=== PATIENT | male | born 1960 | race Caucasian/White ===

== ENCOUNTER 2025-07-31 10:41 | Day surgery (SDC) | payer OTHER, SELFPAY ==
[2025-07-31 11:03] VITALS: BP 132/88; PULSE 92; RESP 14; TEMP 36.6; O2SAT 97
--- NOTE | 2025-07-31 11:10 | W.ANESPRE ---
General Info Date of Service Date Performed: 07/31/25 Height: 5 ft 7 in Weight: 89.9 kg Body Mass Index (BMI): 31.0 Surgical Procedure: Operation Date: 07/31/25 12:50 Proposed Procedure Side Surgeon p Colonoscopy/Gastroscopy Janice Gilman MD Meds Allergies and Home Medications Allergies Allergy/AdvReac Type Severity Reaction Status Date / Time No Known Allergies Allergy Verified 07/31/25 10:57 Home Medication ?Medication ?Instructions ?Recorded amlodipine 5 mg tablet 5 mg PO DAILY 07/16/25 atorvastatin 40 mg tablet (Lipitor) 40 mg PO DAILY 07/16/25 fenofibrate nanocrystallized 48 mg 48 mg PO DAILY 07/16/25 tablet losartan 25 mg tablet 25 mg PO DAILY 07/16/25 bisacodyl 5 mg tablet,delayed 5 mg PO ONCE #4 tabs 07/28/25 release (Dulcolax (bisacodyl)) peg 3350-electrolytes 236 240 ml PO Q10M #4,000 mL 07/28/25 gram-22.74 gram-6.74 gram-5.86 gram solution (Golytely) Current Visit Medications: Current Medications Generic Name Dose Route Start Last Admin Trade Name Freq PRN Reason Stop Dose Admin Ringer's Solution 1,000 mls @ 80 mls/hr 07/31/25 06:00 IV 07/31/25 23:59 INFUSION GRACIE IV Miscellaneous Supplies 1 each 07/31/25 06:00 Iv Access IV 07/31/25 23:59 DIRECTED GRACIE Sodium Biphosphate/Sodium Phosphate 133 - 266 ml 07/31/25 06:00 Na Phosphate Enema-Adult 133 Ml Btl W[place] 07/31/25 23:59 PRN PRN Sodium Chloride 0 ml 07/31/25 06:00 Normal Saline Flush 10 Ml Syr IV 07/31/25 23:59 PRN PRN Sodium Chloride 0 ml 07/31/25 06:00 Normal Saline 10 Ml Vial IJ 07/31/25 23:59 DIRECTED PRN Sterile Water 0 ml 07/31/25 06:00 Water,Injection,Sterile 10 Ml Vial IJ 07/31/25 23:59 DIRECTED PRN PFSH Active Problems Active Problems: Problem Status Onset Code Dysphagia Acute R13.10 GERD (gastroesophageal reflux disease) Chronic K21.9 Medical History Medical History Status post nephrectomy - incidental finding left kidney on 01/2023 imaging. clear cell carcinoma. s/p resect 08/28 was following with [facility] urology Dr. Ortiz [facility] q6mo Hyperlipidemia Gout Essential hypertension Surgical History Surgical History S/P appendectomy (~2005) Tobacco Smoking/Tobacco Use Status: Former Tobacco Use Passive smoking exposure: No Alcohol Alcohol Intake: current Alcohol intake frequency: a few times a week Alcohol type: hard liquor Substance Use Substance use: Never Substance use type: does not use Vital Signs and Lab Results Vital Signs Most Recent Vital Signs in EMR: Most Recent Vital Signs Temp Pulse Resp BP Pulse Ox 36.6 C 92 H 14 132/88 97 07/31/25 11:03 07/31/25 11:03 07/31/25 11:03 07/31/25 11:03 07/31/25 11:03 Anesthesia Assessment and Plan Anesthesia History Personal History: No History of Anesthesia Complications Family History: No Family History of Anesthesia Complications Exercise Tolerance Exercise Tolerance: Metabolic Equivalents>4 Pertinent Negatives Pertinent Negatives: No Symptoms of GERD Cardiac & Pulmonary Exam Cardiac Exam: Normal S1/S2 Heart Sounds Pulmonary Exam: Clear Bilateral Breath Sounds Implantable Cardiac Device Does patient have a Pacemaker or an ICD?: No Airway Exam Known Difficult Airway: No Mallampati Class: 1 Mouth Opening: Normal (> 3cm) Thyromental Distance: Greater than 3 cm Neck Range of Motion: Full ROM Neck Circumference: Normal Teeth Condition: Normal Dentition ASA Classification ASA Score: ASA 2 Emergency Case?: No NPO Status NPO Status: NPO Clears >2 hours, Solids >8 hours Anesthesia Plan Resuscitation Status: Full Code Anesthesia Technique: General Anesthesia Airway Planned: Natural Airway Monitors Used: Standard Monitors
[2025-07-31 11:12] VITALS: BMI 31.0
[2025-07-31] MEDS: Lactated Ringers 1,000 ML 80 ML IV (11:25)
--- NOTE | 2025-07-31 11:39 | W.PM.DSUDISC ---
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 Needs repeat EGD in 3 months to reassess after treatment with PPI. Colonoscopy with one polyp that could not be removed due to the angle. Biopsy performed, recommend repeat colonoscopy for removal of the rest in 3 months. Repeat attempts are often successful. Home Meds and New Rx's Prescriptions: New pantoprazole 40 mg tablet,delayed release (DR/EC) 40 mg PO DAILY Qty: 90 3RF Continued atorvastatin [Lipitor] 40 mg tablet 40 mg PO DAILY amlodipine 5 mg tablet 5 mg PO DAILY losartan 25 mg tablet 25 mg PO DAILY fenofibrate nanocrystallized 48 mg tablet 48 mg PO DAILY Discontinued peg 3350-electrolytes [Golytely] 236-22.74-6.74 -5.86 gram recon soln 240 ml PO Q10M Qty: 4000 0RF Rx Instructions: until fecal effluent is clear bisacodyl [Dulcolax (bisacodyl)] 5 mg tablet,delayed release (DR/EC) 5 mg PO ONCE Qty: 4 0RF Rx Instructions: Take per colonoscopy instructions provided by ordering providers office Discharge Instructions Additional Instructions: Your egd showed severe esophagitis with ulcer and stricture. This means the esophagus is narrow and inflamed and even has an ulcer on it from how irritated it has gotten from acid reflux. You reflux from your hiatal hernia that was seen today. The esophagus was too inflamed and irritated to be able to safely dilate or stretch today. Because of the ulceration I also was not able to get a thorough exam of it to check it for signs of skilled nursing damage. We need to repeat this EGD procedure after a period of medication treatment of your reflux. The medication will calm it down enough for me to be able to stretch it if needed, and to be able to examine it better for problems. You will need to stay on an acid serjio [facility] HOME to prevent complications like this, and prevent worsening of these problems. The new medication I prescribed you is your new best friend. Take it every day faithfully. Come see me in office in 2-4 weeks to review your scopes, all biopsies that I took today from stomach and esophagus and colon, and to ensure this problem with swallowing is getting better. Avoid lumps of meat and bread (avoid sandwiches). Eat ground meats with sauce and other easy to swallow foods. As your swallowing improves on the medication you can start to eat regular again. Colonoscopy showed one polyp. It was large. I was not able to remove all of it today, we will need to remove the rest of whats left of it on another visit. We will repeat the colonoscopy at the time of your next upper scope when we recheck the esophagus. We will discuss timing of this at the office appointment. Call my office and make a follow up appointment for 2 weeks from now please. It important that you follow up with me about these things. I can help keep your esophagus safe. Stand Alone Forms: Anesthesia Discharge Inst., DSU Post EGD Instructions, Colonoscopy Post Instructions, Re Newman (DSU) Activity:: Activity as Tolerated Diet:: Ground meats, sauces on food to moisten. Drink well with meals. Discharge Orders Discharge Orders: Discharge Order (Routine); Ordered 07/31/25 Ordered By: Janice Gilman DS: Diagnosis Discharge Diagnosis (1) Screening for colorectal cancer: Status: Acute (2) Dysphagia: Status: Acute (3) GERD (gastroesophageal reflux disease): Status: Chronic (4) Hiatal hernia with GERD and esophagitis: Status: Acute (5) Ulcerative esophagitis: Status: Acute (6) Esophageal stricture: Status: Acute (7) Polyp of ascending colon: Status: Acute
--- NOTE | 2025-07-31 12:11 | W.PM.ENDDOP ---
Date of service: 07/31/25 Time of Service: 12:12 Endoscopy Report DATE OF PROCEDURE: 07/31/25 PRE-OP DIAGNOSIS: Dysphagia, GERD, odynophagia POST-OP DIAGNOSIS: same PROCEDURE: EGD with biopsy SURGEON: Janice Gilman ANESTHESIA TYPE: General:No Airway ESTIMATED BLOOD LOSS: 2 PATHOLOGY: other (1. antrum biopsy) COMPLICATIONS: None DISPOSITION: same day PROCEDURE DESCRIPTION: Lubricated endoscope was passed through a bite block into the second portion of the duodenum. The endoscope was withdrawn and the duodenum stomach and esophageal mucosa examined. The duodenum appears moderate to severely inflamed in the bulb. There is no ulceration or erosion. The antrum appears mild to moderately inflamed. The fundus appears normal. The cardia appears normal. There is moderate sized hiatal hernia noted upon retroflexion. GE junction is present at 36cm from the incisors. There is acute and chronic inflammation with ulceration. No varices or candidiasis. Remainder of the esophagus appears normal Cold forceps biopsies obtained from the duodenum, antrum and the distal esophagus for microscopic evaluation for sprue, enteropathy, H. pylori, Barretts esophagitis. Dilation of esophagus was not performed due to severity of inflammation and ulceration. The upper digestive system was desufflated and the endoscope withdrawn. No complications. Assessment and plan: Mild to moderate duodenitis and gastritis. hiatal hernia with severe esophagitis, narrowing and ulceration. Start pantoprazole 40mg daily. Monitor for bleeding with meals. Dilation of esophagus was not performed due to severity of inflammation and ulceration. Recommend a second look at the esophagus after the inflammation has been reduced and treated, need to rule out barretts metaplasia or dysplastic change. Too much acute inflammation today for complete exam. Office follow up in 2-4 weeks.
--- NOTE | 2025-07-31 12:16 | BOWEL_PTH ---
PATIENT: Marvin Blanton LOC: [facility] U#:[id number] AGE/SX: 65/M ROOM: RE07/31/[address]: Janice Gilman MD : 1960 BED: DIS: 07/31/2025 SPEC #: [id number] RECD: 07/31/25 16:47 STATUS: FRANCA RE #: [id number] WILLA: 07/31/25 12:[address]: Janice Gilman DEPT: Surgical Specimen RECD BY: Sarai Cedeño Tissues: 1 - BIOPSY BOWEL 2 - STOMACH BIOPSY 3 - ESOPHAGUS BIOPSY 4 - BIOPSY BOWEL Procedures: GROSS AND MICRO LEVEL 4 Comments: [id number]
[2025-07-31 12:54] VITALS: BP 100/74; PULSE 85; RESP 15; TEMP 36.4; O2SAT 94
--- NOTE | 2025-07-31 12:59 | W.ANESPOSTOP ---
Postoperative Evaluation Date, Time and Location Date Performed: 07/31/25 Time Performed: 12:54 Patient Location: Day Surgery Unit Vital Signs Most Recent Imported Vital Signs: Most Recent Vital Signs Temp Pulse Resp BP Pulse Ox 36.4 C L 85 15 100/74 94 07/31/25 12:54 07/31/25 12:54 07/31/25 12:54 07/31/25 12:54 07/31/25 12:54 Pain Score Most Recent Pain Score: Most Recent Pain Score Pain Level 3 07/31/25 11:03 Assessment Mental Status: Awake (Alert & Oriented to Patient Baseline) Airway and Respiratory Function: Patent airway with normal (patient baseline) respiratory exam Cardiovascular Function: Hemodynamically Stable Hydration Status: Adequately Hydrated Nausea & Vomiting: No Nausea or Vomiting Pain: Pain is tolerable per patient Peripheral Nerve Block: Patient did not receive a nerve block
--- NOTE | 2025-07-31 13:01 | W.COLOREPORT ---
Date of service: 07/31/25 Time of Service: 13:01 Colonoscopy Report Date of procedure: 07/31/25 Pre-op diagnosis general: Screening for colorectal cancer Post-op diagnosis procedure note: same Procedure: Colonoscopy Surgeon: Janice Gilman Anesthesia Type: General:No Airway Estimated blood loss (mL): 0 Pathology: other (asc col polyp biopsy) Complications: None Indications: screening for colorectal cancer Prep: Miralax/Dulcolax (excellent) Procedure Description: Informed consent was obtained and the patient was taken to the procedure area. The patient was placed in left lateral decubitus position on the procedure table. Timeout was performed. Anesthesia was induced. A lubricated colonoscope was inserted through the anus and passed to the cecum. The cecum was identified by the ileocecal valve and the appendiceal orifice. The scope was then slowly withdrawn and the colonic and rectal mucosa examined. TI intubated and examined. It appears normal. Ascending colon with 10mm by 6mm sessile polyp. Hot snare attempted with only portion of polyp able to be reached due to the angle of the scope. Suction trap used to retrieve the biopsy. No diverticulosis was seen. The scope was retroflexed in the anorectal junction examined. Uncomplicated internal hemorrhoids present. Assessment and plan: Ascending colon polyp One large polyp of asc colon seen and biopsied today. Unable to remove in its entirety due to angle of the scope. Repeat scope is usually successful when difficulty is relatd to scope angulation, so I plan to return on another date to remove the rest of the polyp. Will review path in office. Time repeat colonoscopy with repeat EGD.
[2025-07-31 13:14] VITALS: BP 126/79; PULSE 65; RESP 16; TEMP 36.2; O2SAT 99
== END 2025-07-31 13:40 | disposition home or self-care (01) ==
LOC: SUR 10:42
PROVIDERS: PCP Nurse Practitioner; Visit Provider Surgery
PROC: (CPT 45385; principal; 2025-07-31 12:45)
DX: Z12.11 Encounter for screening for malignant neoplasm of colon (principal); R13.10 Dysphagia, unspecified; K44.9 Diaphragmatic hernia without obstruction or gangrene; K22.10 Ulcer of esophagus without bleeding; K22.2 Esophageal obstruction; K63.5 Polyp of colon
CPT/HCPCS: 45385; 43239; 88305; J2003; J2704

== ENCOUNTER 2025-10-23 07:59 | Day surgery (SDC) | payer OTHER, SELFPAY ==
[2025-10-23 06:25] VITALS: BP 141/78; PULSE 71; RESP 14; TEMP 36.2; O2SAT 99
[2025-10-23] MEDS: Lactated Ringers 1,000 ML 80 ML IV ×2 (06:49→08:29)
--- NOTE | 2025-10-23 07:51 | ANES.PREOP_ITS ---
General Info Date of Service Date Performed: 10/23/25 Height: 5 ft 7 in Weight: 95.708 kg Body Mass Index (BMI): 33.0 Surgical Procedure: Operation Date: 10/23/25 07:35 Proposed Procedure Side Surgeon p Colonoscopy/Gastroscopy Janice Gilman MD Meds Allergies and Home Medications Allergies Allergy/AdvReac Type Severity Reaction Status Date / Time No Known Allergies Allergy Verified 10/23/25 07:52 Home Medication ?Medication ?Instructions ?Recorded amlodipine 5 mg tablet 5 mg PO DAILY 07/16/25 atorvastatin 40 mg tablet (Lipitor) 40 mg PO DAILY 08/30 fenofibrate nanocrystallized 48 mg 48 mg PO DAILY 07/07 tablet losartan 25 mg tablet 25 mg PO DAILY 07/16/25 pantoprazole 40 mg tablet,delayed 40 mg PO DAILY #90 t abs 07/31/25 release bisacodyl 5 mg tablet,delayed 5 mg PO ONCE colonscopy bowel prep 09/03/25 release (Dulcolax (bisacodyl)) #4 tabs polyethylene glycol 3350 17 238 g PO ONCE colonoscopy prep 09/03/25 gram/dose oral powder #238 grams Current Visit Medications: Current Medications Generic Name Dose Route Start Last Admin Trade Name Freq PRN Reason Stop Dose Admin Ringer's Solution 1,000 mls @ 80 mls/hr 10/23/25 06:00 IV 10/23/25 23:59 INFUSION GRACIE Sodium Biphosphate/Sodium Phosphate 133 ml 10/23/25 06:00 Na Phosphate Enema-Adult 133 Ml Btl PA 10/23/25 23:59 DIRECTED PRN Sodium Chloride 0 ml 10/23/25 06:00 Normal Saline Flush 10 Ml Syr IV 10/23/25 23:59 PRN PRN Sodium Chloride 0 ml 10/23/25 06:00 Normal Saline 10 Ml Vial IJ 10/23/25 23:59 DIRECTED PRN Sterile Water 0 ml 10/23/25 06:00 Water,Injection,Sterile 10 Ml Vial IJ 10/23/25 23:59 DIRECTED PRN PFSH Active Problems Active Problems: Problem Status Onset Code Adenoma of ascending colon Acute D12.2 Esophageal stricture Acute K22.2 Ulcerative esophagitis Acute K22.10 Hiatal hernia with GERD and esophagitis Acute K44.9, K21.00 Screening for colorectal cancer Acute Z12.11, Z12.12 Dysphagia Acute R13.10 GERD (gastroesophageal reflux disease) Chronic K21.9 Medical History Medical History Status post nephrectomy - incidental finding left kidney on 01/2023 imaging. clear cell carcinoma. s/p resect 08/28 was following with [facility] urology Dr. Ortiz [facility] q6mo Hyperlipidemia Gout Essential hypertension Surgical History Surgical History History of esophagogastroduodenoscopy (~07/31/25) biopsy History of colonoscopy (~07/31/25) S/P appendectomy (~2005) Tobacco Smoking/Tobacco Use Status: Former Tobacco Use Passive smoking exposure: No Alcohol Alcohol Intake: current Alcohol intake frequency: a few times a week Alcohol type: hard liquor Substance Use Substance use: Never Substance use type: does not use Anesthesia Assessment and Plan Anesthesia History Personal History: No History of Anesthesia Complications Family History: No Family History of Anesthesia Complications Exercise Tolerance Exercise Tolerance: Metabolic Equivalents>4 Pertinent Negatives Pertinent Negatives: No Symptoms of GERD (RX: Pantoprazole) Cardiac & Pulmonary Exam Cardiac Exam: Normal S1/S2 Heart Sounds Pulmonary Exam: Clear Bilateral Breath Sounds Implantable Cardiac Device Does patient have a Pacemaker or an ICD?: No Airway Exam Known Difficult Airway: No Mallampati Class: 2 Mouth Opening: Normal (> 3cm) Thyromental Distance: Greater than 3 cm Neck Range of Motion: Full ROM Neck Circumference: Normal Teeth Condition: Normal Dentition ASA Classification ASA Score: ASA 2 Emergency Case?: No NPO Status NPO Status: NPO Clears >2 hours, Solids >8 hours Anesthesia Plan Resuscitation Status: Full Code Anesthesia Technique: General Anesthesia Airway Planned: Natural Airway Monitors Used: Standard Monitors
[2025-10-23 07:52] VITALS: BMI 33.0
--- NOTE | 2025-10-23 08:09 | BOWEL_PTH ---
PATIENT: Marvin Blanton LOC: [facility] U#:[id number] AGE/SX: 65/M ROOM: RE10/23/[address]: Janice Gilman MD : 1960 BED: DIS: 10/23/2025 SPEC #: [id number] RECD: 10/23/25 13:00 STATUS: FRANCA RENely #: [id number] WILLA: 10/23/25 08:[address]: Janice Gilman DEPT: Surgical Specimen RECD BY: Sarai Cedeño Tissues: 1 - ESOPHAGUS BIOPSY 2 - BIOPSY BOWEL 3 - BIOPSY BOWEL Procedures: GROSS AND MICRO LEVEL 4 Comments: [id number]
[2025-10-23 08:40] VITALS: BP 97/53; PULSE 84; RESP 18; TEMP 36.3; O2SAT 95
--- NOTE | 2025-10-23 08:45 | W.PM.DSUDISC ---
Date of service: 10/23/25 Discharge Plan Disposition Patient Disposition: Home Condition: Stable Discharge Details Attending Provider: Janice Gilman Primary Care Provider: Sonali Gamble Home Meds and New Rx's Prescriptions: Continued atorvastatin [Lipitor] 40 mg tablet 40 mg PO DAILY amlodipine 5 mg tablet 5 mg PO DAILY losartan 25 mg tablet 25 mg PO DAILY fenofibrate nanocrystallized 48 mg tablet 48 mg PO DAILY pantoprazole 40 mg tablet,delayed release (DR/EC) 40 mg PO DAILY Qty: 90 3RF Discontinued bisacodyl [Dulcolax (bisacodyl)] 5 mg tablet,delayed release (DR/EC) 5 mg PO ONCE Qty: 4 0RF Rx Instructions: take per colonoscopy instructions polyethylene glycol 3350 17 gram/dose powder 238 g PO ONCE Qty: 238 0RF Rx Instructions: take per colonoscopy instructions Discharge Instructions Additional Instructions: EGd shows healing of the esophagus ulcers and inflammation. everything looks much better. You do have a stricture which is a narrowing or scarring of the esophagus from reflux over time. This will tighten down again if you stop taking your acid serjio. Stay on pantoprazole 40mg daily indefinitely. Colonoscopy shows the polyp in the right colon, I was able to remove it completely today. Two tiny polyps also seen in the lower colon and removed. Timing of next colonoscopy will depend on biopsy results from the large polyp. 1-3 years til next colonoscopy likely. I will write you a letter to let you know. See me in office as planned. If no appointment made yet, okay to see me as needed if your esophagus flairs up again. Stand Alone Forms: Portal Information Discharge Orders Discharge Orders: Discharge Order (Routine); Ordered 10/23/25 Ordered By: Janice Gilman DS: Diagnosis Discharge Diagnosis (1) Adenoma of ascending colon: Status: Acute (2) Esophageal stricture: Status: Acute (3) Hiatal hernia with GERD and esophagitis: Status: Acute
--- NOTE | 2025-10-23 08:49 | W.COLOREPORT ---
Date of service: 10/23/25 Time of Service: 08:49 Colonoscopy Report Date of procedure: 10/23/25 Pre-op diagnosis general: Polyp clearance of ascending colon polyp Post-op diagnosis procedure note: same (asc colon polyp. Sigmoid polyps. ) Procedure: Colonoscopy with hot snare and cold forcep polypectomy Surgeon: Janice Gilman Anesthesia Type: General:No Airway Estimated blood loss (mL): 3 Pathology: other (1. ascending colon polyp. 2. multiple sigmoid polyps) Complications: None Indications: screening for colorectal cancer Prep: Miralax/Dulcolax (excellent) Procedure Description: Informed consent was obtained and the patient was taken to the procedure area. The patient was placed in left lateral decubitus position on the procedure table. Timeout was performed. Anesthesia was induced. A lubricated colonoscope was inserted through the anus and passed to the cecum. The cecum was identified by the ileocecal valve and the appendiceal orifice. The scope was then slowly withdrawn and the colonic and rectal mucosa examined. Ascending colon with residual 10mm sessile polyp. Hot snare used to remove this peacemeal. Scope was retroflexed in the cecum to allow complete vsiaulization and complete polypectomy with hot snare. Polyp retrieved with suction trap. Removal and retrieval were complete. Sigmoid colon with two sessile 3mm polyps, excised with cold forceps. No diverticulosis was seen. The scope was retroflexed in the anorectal junction examined. Uncomplicated internal hemorrhoids present. Assessment and plan: Ascending colon polyp multiple sigmoid polyps Successful complete polypectomy of residual large ascending colon polyp. Timing of next colonoscopy will depend on pathology of the ascending colon polyp, 1-3 years.
--- NOTE | 2025-10-23 08:49 | W.ANESPOSTOP ---
Postoperative Evaluation Date, Time and Location Date Performed: 10/23/25 Time Performed: 08:49 Patient Location: Day Surgery Unit Vital Signs Most Recent Imported Vital Signs: Most Recent Vital Signs Temp Pulse Resp BP Pulse Ox 36.2 C L 71 14 141/78 H 99 10/23/25 06:25 10/23/25 06:25 10/23/25 06:25 10/23/25 06:25 10/23/25 06:25 Pain Score Most Recent Pain Score: Most Recent Pain Score Pain Level 0 10/23/25 06:25 Assessment Mental Status: Awake (Alert & Oriented to Patient Baseline) Airway and Respiratory Function: Patent airway with normal (patient baseline) respiratory exam Cardiovascular Function: Hemodynamically Stable Hydration Status: Adequately Hydrated Nausea & Vomiting: No Nausea or Vomiting Pain: Pt. Denies Any Pain Peripheral Nerve Block: Patient did not receive a nerve block
--- NOTE | 2025-10-23 08:53 | W.PM.ENDDOP ---
Date of service: 10/23/25 Time of Service: 08:53 Endoscopy Report DATE OF PROCEDURE: 10/23/25 PRE-OP DIAGNOSIS: hiatal hernia with GERD and esophagitis, esophageal ulcer, stricture POST-OP DIAGNOSIS: same (Esophagitis resolved, ulceration resolved, residual stricture noted. ) PROCEDURE: EGD with biopsy SURGEON: Janice Gilman ANESTHESIA TYPE: General:No Airway ESTIMATED BLOOD LOSS: 2 PATHOLOGY: other (distal esophagus biopsy) COMPLICATIONS: None DISPOSITION: same day PROCEDURE DESCRIPTION: Lubricated endoscope was passed through a bite block into the second portion of the duodenum. The endoscope was withdrawn and the duodenum stomach and esophageal mucosa examined. The duodenum appears normal, improved. The antrum appears normal, improved. The fundus appears normal. The cardia appears normal. There is moderate sized hiatal hernia noted upon retroflexion. GE junction is present at 36cm from the incisors. There is one extension of mucosa above the Z line. GE junction with esophageal stricture without residual acute inflammatory change. Ulceration noted 3 months ago resolved. No varices or candidiasis. Remainder of the esophagus appears normal Cold forceps biopsies obtained from distal esophagus segment to evaluate for Barretts esophagus. The upper digestive system was desufflated and the endoscope withdrawn. No complications. Assessment and plan: Hiatal hernia with GERD esophageal stricture Resolution of ulcerative esophagitis noted. Residual esophageal stricture seen. Will follow up on bipsy to rule out Barretts metaplasia. Patient should continue on PPI therapy indefinitely due to complications of hiatal hernia with GERD, which included ulcerative esophagitis, and residual stricture. Follow up as needed for dilation if symptoms recur. No indication for dilation now as he is asymptomatic.
[2025-10-23 08:58] VITALS: BP 108/72; PULSE 67; RESP 18; TEMP 36.5; O2SAT 99
== END 2025-10-23 09:25 | disposition home or self-care (01) ==
PROVIDERS: PCP Nurse Practitioner; Visit Provider Surgery
PROC: (CPT 45385; principal; 2025-10-23 07:30)
DX: D12.2 Benign neoplasm of ascending colon (principal); K22.2 Esophageal obstruction; K44.9 Diaphragmatic hernia without obstruction or gangrene; K21.00 Gastro-esophageal reflux disease with esophagitis, without bleeding
CPT/HCPCS: 45385; 45380; 43239; 88305; J2003; J2704